=== PATIENT | female | born 1990 | race Caucasian/White ===

== ENCOUNTER 2016-08-16 01:02 | Emergency (ER) | payer MEDICAID ==
[~2016-08-16 01:02] MED LIST: HIGHTAB3 PO; IBUP600 PO; PERI8.6T PO; PREN0.01 PO
--- NOTE | 2016-08-16 02:16 | PD ---
HPI Chief Complaint diarrhea and nausea Date Seen: Aug 16, 2016 Travel History International Travel<30 Days: No Contact w/Intl Traveler<30Days: No Known Affected Area: No History of Present Illness HPI 26 yo @ 30w3d with [facility] 10-22-2016. care with Dr. Patel. Patient presents with c/o diarrhea and reflux/belching and epigastric pain starting last evening. She had a normal dinner, no sick contacts. She denies nausea or vomiting at this time. History Past Medical History Medical History: Denies Significant Hx Obstetric History Obstetric History SAB x 3 x 2, term Past Surgical History Narrative Surgical D&C Family History Family History: Negative Social History Alcohol Use: No Tobacco Use: No Substance Abuse: No Allergies-Medications (Allergen,Severity, Reaction): Coded Allergies: Oxycontin (Verified Allergy, Severe, 12/11/13) Home Meds Active Scripts Sennosides-Docusate Sodium (Carole-Colace 8.6-50 mg)1 Tab Tab2 Tab PO Q12H PRN ( CONSTIPATION) #30 TAB Ref 0 Prov:Nreeyda House MD R3 08/02/15 Ibuprofen (Motrin 600 Mg Tab)600 Mg [id number] Mg PO Q6H PRN ( CRAMPING) # 60 TAB Ref 0 Prov:Nereyda House MD R3 08/02/15 Reported Medications Ferrous Sulfate Tab2 Tab PO BID 07/31/15 Multivit/Min/Fol Ac/Iron/Pren ( Vit ( Plus)) Tab1 Tab PO DAILY 07/31/15 Review of Systems General / Constitutional: No: Fever, Chills Eyes: No: Blurred Vision, Visual changes HENT: No: Headaches, Lightheadedness Cardiovascular: No: Chest Pain or Discomfort, Palpitations Respiratory: No: Cough, Short of Breath Gastrointestinal: Diarrhea, Abdominal Pain (epigastic), Changes in Bowel Habits , No: Nausea, Vomiting, Loss of Appetite Genitourinary: No: Urgency, Frequency, Dysuria, Discharge, Vaginal Bleeding Musculoskeletal: No: Limited ROM, Weakness Skin: No Rash, No Itching, No Lesions Neurologic: No: Syncope, Focal Abnormalities Physical Exam Vital Signs Date Time Temp Pulse Resp B/P Pulse Ox O2 Delivery O2 Flow Rate FiO2 08/16/16 03:38 96 120/68 Narrative GENERAL: Well-nourished, well-developed patient. NAD SKIN: Warm and dry. HEAD: Normocephalic and atraumatic. EYES: No scleral icterus. No injection or drainage. ENT: No nasal drainage noted. Mucous membranes pink. Airway patent. NECK: Supple, trachea midline. No JVD. CARDIOVASCULAR: Regular rate VSS RESPIRATORY: . No accessory muscle use. ABDOMEN/GI: Abdomen soft, non-tender, no rebound, no guarding Gravid TOCO: irregular UC GENITOURINARY: External Genitalia: intact and normal in appearance BUS glands: [-] SVE: Close/50%/high FHT's: Category: I Baseline: 130 Reactive: + accelerations Variability: mod Decels: [-] EXTREMITIES: No cyanosis or edema. BACK: Nontender without obvious deformity. Normal ROM NEUROLOGICAL: Awake and alert. Motor and sensory grossly within normal limits. Normal speech. Data Data Vital Signs Reviewed: Yes Orders Urinalysis - C+S If Indicated (08/16/16 01:55) Vital Signs (Adult) .ON ADMISSION (08/16/16 02:01) ^ Labor Status (08/16/16 02:01) ^ Non Stress Test (08/16/16 02:01) ^ Hydration (08/16/16 02:01) Labs Laboratory Tests Test 08/16/16 01:27 Urine Color LIGHT-YELLOW (YELLW/STRAW) Urine Turbidity CLEAR (CLEAR) Urine pH 7.0 (5.0-8.5) Urine Specific Henrietta 1.007 (1.002-1.035) Urine Protein NEG mg/dL (NEG-TRACE) Urine Glucose (UA) NEG mg/dL (NEG) Urine Ketones NEG mg/dL (NEG) Urine Occult Blood NEG (NEG) Urine Nitrite NEG (NEG) Urine Bilirubin NEG (NEG) Urine Urobilinogen LESS THAN 2.0 MG/DL (LESS THAN 2.0) Urine Leukocyte Esterase NEG (NEG) Urine WBC LESS THAN 1 /hpf (0-5) Urine Squamous Epithelial 1 /hpf (0-5) Cells Microscopic Urinalysis Comment CULT NOT INDICATED MDM Narrative Course / MDM 30 weeks Diarrhea and reflux/belching - improved with BiCitra Tolerating po fluids UA negative Given oral and IV hydration Irregular UC resolved with fluids and Terbulatine x 1. No labor/cervical dilation. Recent intercourse. CAT I FHT Plan D/c home will try TUMS prn increase hydration bland diet reviewed dehydration precautions f/u LASHONDA with Dr. Patel Diagnosis Diagnosis: Primary Impression: Gastrointestinal symptoms during in third trimester, antepartum Additional Impressions: Diarrhea Qualified Code: R19.7 - Diarrhea, unspecified type Epigastric abdominal pain 30 weeks gestation of Disposition: DISCHARGE HOME Condition: Good Delmy Edwards MD Aug 16, 2016 02:16
[2016-08-16 02:29] LABS: BLOOD, URINE NEG (NEG); COMMENT (UR) CULT NOT INDICATED; CULTURE IF INDICATED CULT NOT INDICATED; GLUCOSE,URINE NEG (NEG); KETONE, URINE NEG (NEG); NITRITE,URINE NEG (NEG); SQUAMOUS EPITHELIAL CELL URINE 1 /hpf (0-5); URINE COLOR LIGHT-YELLOW (YELLW/STRAW)
[2016-08-16] MEDS ORDERED: LACTATED RINGER'S 1000 ML INJ 1,000 ML IV SCH (02:34)
[2016-08-16] MEDS ORDERED: CITRIC ACID-SODIUM CITRATE LIQ 30 ML UDC PO ONE (02:45)
[2016-08-16] MEDS ORDERED: ONDANSETRON HCL 4 MG/2 ML VIAL IV ONE (02:45)
[2016-08-16] MEDS ORDERED: TERBUTALINE INJ 1 MG/ML AMP ONE (03:31)
[2016-08-16 03:38] VITALS: BP 120/68; PULSE 96
[2016-08-16] MEDS ORDERED: TERBUTALINE INJ 1 MG/ML AMP SQ ONE (03:45)
== END 2016-08-16 05:00 | disposition home or self-care (01) ==
LOC: HOBED 01:02
DX: O26.93 Pregnancy related conditions, unspecified, third trimester (principal); O62.2 Other uterine inertia; R19.7 Diarrhea, unspecified; R10.13 Epigastric pain; Z3A.30 30 weeks gestation of pregnancy
CPT/HCPCS: 59025; 81001; 96360; 96372; 99284; J3105; J7120

== ENCOUNTER 2016-10-05 20:42 | Emergency (ER) | payer MEDICAID ==
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
== END 2016-10-05 22:15 | disposition home or self-care (01) ==
LOC: HOBED 20:42
DX: O99.89 Other specified diseases and conditions complicating pregnancy, childbirth and the puerperium (principal); R10.9 Unspecified abdominal pain; R42 Dizziness and giddiness; O99.013 Anemia complicating pregnancy, third trimester; O99.283 Endocrine, nutritional and metabolic diseases complicating pregnancy, third trimester; E03.9 Hypothyroidism, unspecified; Z3A.37 37 weeks gestation of pregnancy; Z79.899 Other long term (current) drug therapy
CPT/HCPCS: 59025

== ENCOUNTER 2016-10-28 17:28 | Inpatient (IN) | payer MEDICAID ==
[~2016-10-28] VITALS: Ht 162.6 cm; Wt 86.2 kg
[2016-10-28] VITALS (30 sets, daily range): BP systolic 107–138; BP diastolic 64–80; PULSE 78–103; RESP 14–18; TEMP 98.1
[2016-10-28 18:20] LABS: MEAN CORPUSCULAR HGB CONC 29.8 % (32.0-36.0)
[2016-10-28] MEDS ORDERED: ONDANSETRON HCL 4 MG/2 ML VIAL IV PRN (18:45)
[2016-10-28] MEDS ORDERED: MINERAL OIL 10 ML VIAL TOPICAL PRN (18:45)
[2016-10-28] MEDS ORDERED: LIDOCAINE HCL 1% 50 ML VIAL INFIL PRN (18:45)
[2016-10-28] MEDS ORDERED: CITRIC ACID-SODIUM CITRATE LIQ 30 ML UDC PO SCH (18:45)
[2016-10-28] MEDS: LACTATED RINGER'S 1000 ML INJ 1,000 ML IV SCH ×2 (18:45→23:24)
[2016-10-28] MEDS ORDERED: LIDOCAINE HCL 1% 50 ML VIAL I-DERMAL PRN (18:45)
[2016-10-28] MEDS ORDERED: OXYTOCIN 30 UNITS 500ML PREMIX IV ONE (18:45)
[2016-10-28] MEDS: MISOPROSTOL 25 MCG SUPP VAGINAL ONE ×2 (18:46→19:00)
[2016-10-28 18:57] LABS: AUTOMATED NEUTROPHIL # 8.6 TH/MM3 (1.8-7.7); BASOPHIL % 0.4 % (0.0-2.0); EOSINOPHIL # 0.1 TH/MM3 (0-0.4); EOSINOPHIL % 1.1 % (0.0-4.0); HEMATOCRIT 28.2 % (35.0-46.0); LYMPH % 18.6 % (9.0-44.0); LYMPHOCYTE # 2.3 TH/MM3 (1.0-4.8); MEAN CORPUSCULAR HEMOGLOBIN 18.8 PG (27.0-34.0); MONO % 9.3 % (0.0-8.0); NEUT % 70.6 % (16.0-70.0); PLATELET COUNT 332 TH/MM3 (150-450); RED BLOOD COUNT 4.48 MIL/MM3 (4.00-5.30); RED CELL DISTRIBUTION WIDTH 21.3 % (11.6-17.2); WHITE BLOOD COUNT 12.2 TH/MM3 (4.0-11.0)
[2016-10-28 18:59] LABS: BACTERIA, URINE RARE /hpf; BLOOD, URINE NEG (NEG); COMMENT (UR) CULT NOT INDICATED; CULTURE IF INDICATED CULT NOT INDICATED; GLUCOSE,URINE TRACE mg/dL (NEG); KETONE, URINE TRACE mg/dL (NEG); MUCUS URINE FEW /lpf (OCC); NITRITE,URINE NEG (NEG); PH, URINE 5.5 (5.0-8.5); SQUAMOUS EPITHELIAL CELL URINE 25 /hpf (0-5); URINE COLOR YELLOW (YELLW/STRAW)
[2016-10-28 19:03] LABS: HEMO FLAGS AUTO DIFF
[2016-10-28 20:00] LABS: OVALOCYTES 1+ (NORMAL); PLATELET ESTIMATE SMEAR NORMAL (NORMAL); PLATELET MORPHOLOGY NORMAL (NORMAL); SCAN/DIFF AUTO DIFF CONFIRMED; TEARDROP RBCS 1+ (NORMAL)
[2016-10-28] MEDS ORDERED: ZOLPIDEM TARTRATE 5 MG TAB PO PRN (21:00)
[2016-10-28] MEDS ORDERED: ePHEDrine/NS 25 MG/5 ML SYR ONE (22:54)
[2016-10-28] MEDS ORDERED: fentaNYL 2MCG-BUPIV 0.125% INJ 100 ML ONE (22:54)
[2016-10-28] MEDS ORDERED: ePHEDrine/NS 25 MG/5 ML SYR IV PRN (23:45)
[2016-10-28] MEDS ORDERED: DO NOT ADMINISTER ANTICOAGULANTS PRN (23:45)
[2016-10-28] MEDS ORDERED: fentaNYL 2MCG-BUPIV 0.125% 100 ML EPIDURAL SCH (23:45)
[2016-10-28] MEDS ORDERED: NO SYSTEM NARCOTICS PRN (23:45)
[2016-10-29] VITALS (57 sets, daily range): BP systolic 91–128; BP diastolic 51–81; PULSE 78–129; RESP 15–18; TEMP 97.8–98.1
[2016-10-29] MEDS ORDERED: LIDOCAINE HCL 1% 50 ML VIAL ONE (01:01)
[2016-10-29] MEDS ORDERED: OXYTOCIN 30 UNITS-500ML PREMIX 500 ML IV SCH ×2 (03:45→04:45)
--- NOTE | 2016-10-29 04:31 | PD.OB.DELI ---
Delivery Date: Oct 29, 2016 Anesthesia: Epidural Episiotomy: None Vaginal Delivery: Spontaneous Presentation: Occiput anterior Nuchal Cord: None Delayed cord clamping (45 sec): No Shoulder Dystocia: Suprapubic pressure given, Maulik maneuver done, Other ( 20 seconds, R shoulder anterior) : Female, Single One Minute : 8 Five Minute : 9 Weight: 10#6oz Placenta: Spontaneous delivery, Intact, 3 vessel cord Laceration: Perineal laceration, 1 deg Repair: Vicryl running Estimated blood loss: 100 mL Additional Information shoulder dystocia identified immediately upon delivery of head Maulik maneuver, suprapubic pressure achieved delivery of R anterior shoulder cord clamped & cut immediately on delivery & handed to awaiting nursery/ respiratory staff immediately crying upon delivery, good movement of R upper extremity, Peds will continue to evaluate reviewed events with patient & father of baby, Noa Willingham MD Oct 29, 2016 04:31
[2016-10-29] MEDS ORDERED: ACETAMINOPHEN 325 MG TAB PO PRN (04:45)
[2016-10-29] MEDS ORDERED: WITCH HAZEL 50%/GLYCERIN 12.5% 40 PAD JAR TOPICAL PRN (04:45)
[2016-10-29] MEDS ORDERED: ALUMINUM/MAGNESIUM/SIMETH 30 ML CUP PO PRN (04:45)
[2016-10-29] MEDS ORDERED: ONDANSETRON ODT 4 MG TAB PO PRN (04:45)
[2016-10-29] MEDS ORDERED: DOCUSATE SODIUM 50 MG/SENNA 8.6 MG TAB PO PRN (04:45)
[2016-10-29] MEDS ORDERED: ZOLPIDEM TARTRATE 5 MG TAB PO PRN (04:45)
[2016-10-29] MEDS ORDERED: BENZOCAINE 20% TOPICAL SPRAY 60 ML CAN TOPICAL PRN (04:45)
[2016-10-29] MEDS ORDERED: SODIUM CHLORIDE 0.9% FLUSH 10 ML FLUSH IV FLUSH PRN (04:45)
--- NOTE | 2016-10-29 08:27 | HHI.OB ---
Subjective Post Day: 0 Remarks doing well, with nipple shield Objective Vitals/I&O Vital Signs Date Time Temp Pulse Resp B/P Pulse Ox O2 Delivery O2 Flow Rate FiO2 10/29/16 05:45 88 123/74 10/29/16 05:30 89 115/74 10/29/16 05:15 15 10/29/16 05:15 84 114/66 10/29/16 05:00 98 121/81 10/29/16 04:59 98.0 15 10/29/16 04:45 90 120/76 10/29/16 04:34 16 10/29/16 04:32 95 127/68 10/29/16 04:30 97 127/68 10/29/16 03:46 80 116/70 10/29/16 03:45 94 10/29/16 03:30 109 10/29/16 03:30 129 128/68 10/29/16 03:25 95 10/29/16 03:20 104 10/29/16 03:15 98.1 10/29/16 03:15 18 10/29/16 03:15 97 10/29/16 03:10 110 10/29/16 03:05 89 10/29/16 03:00 100 116/70 10/29/16 03:00 93 10/29/16 02:55 92 10/29/16 02:50 92 10/29/16 02:45 95 10/29/16 02:40 99 10/29/16 02:35 87 10/29/16 02:30 87 10/29/16 02:30 90 119/71 10/29/16 02:25 91 10/29/16 02:20 92 10/29/16 02:15 87 112/65 10/29/16 02:15 89 10/29/16 02:10 87 10/29/16 02:05 91 10/29/16 02:00 85 109/66 10/29/16 02:00 88 10/29/16 01:55 85 10/29/16 01:50 103 10/29/16 01:45 90 112/72 10/29/16 01:45 89 10/29/16 01:40 86 10/29/16 01:35 87 10/29/16 01:30 86 10/29/16 01:30 88 105/71 8/17/17 01:25 82 17/17 01:20 85 1717 01:15 85 17 01:15 88 105/65 17 01:10 81 17 01:08 18 17 01:05 84 10/29/16 01:00 86 1717 01:00 85 17 00:55 87 1717 00:50 85 1717 00:45 83 95/53 1717 00:45 88 17 00:40 83 1717 00:35 86 1717 00:30 98/51 1717 00:30 85 1717 00:30 82 1717 00:25 84 1717 00:20 90 17 00:18 98/52 1717 00:18 81 17 00:15 84 1717 00:15 91/51 1717 00:15 84 1717 00:10 85 17 00:10 85 1717 00:05 90 10/29/16 00:05 90 10/29/16 00:00 102 93/61 1717 00:00 93/61 1717 00:00 87 10/29/16 00:00 87 10/28/16 23:55 83 1617 23:50 82 1617 23:50 82 16/17 23:45 92 1617 23:45 79 107/64 16/17 23:45 78 16/17 23:30 100 16/17 23:30 87 16/17 23:30 95 110/70 16/17 23:25 84 16/17 23:25 84 111/64 16/17 23:25 84 16/17 23:20 91 113/69 16/17 23:20 93 16/17 23:20 93 16/17 23:15 98.1 16/17 23:15 92 108/79 16/17 23:15 94 8/16/17 23:15 94 8/16/17 23:15 18 10/28/16 23:10 86 10/28/16 23:10 84 10/28/16 23:10 85 10/28/16 23:10 124/80 10/28/16 23:05 87 10/28/16 23:05 89 121/75 10/28/16 23:05 89 10/28/16 23:00 97 10/28/16 23:00 95 10/28/16 23:00 98 127/72 10/28/16 22:59 93 138/76 10/28/16 22:50 90 10/28/16 22:45 96 10/28/16 19:20 89 10/28/16 19:20 98.1 96 14 122/75 10/28/16 19:15 98 10/28/16 19:05 99 10/28/16 19:00 95 10/28/16 18:55 91 10/28/16 18:50 95 10/28/16 18:45 89 10/28/16 18:35 95 10/28/16 18:35 95 10/28/16 18:30 96 10/28/16 18:25 103 10/28/16 18:20 102 10/28/16 18:15 95 10/28/16 18:10 99 10/28/16 18:05 98 10/28/16 18:00 96 10/28/16 17:55 97 10/28/16 17:50 97 Objective Remarks GENERAL: Well-nourished, well-developed patient. CARDIOVASCULAR: Regular rate and rhythm without murmurs, gallops, or rubs. RESPIRATORY: Breath sounds equal bilaterally. No accessory muscle use. ABDOMEN/GI: Abdomen soft, non-tender. Fundus: Firm, non-tender at umbilicus. GENITOURINARY: Light to moderate bleeding. EXTREMITIES: No cyanosis or edema, non-tender, without signs of DVT. Medications and IVs Current Medications Medications (Trade) Dose Ordered Sig/Sheree Route Start Time Stop Time Status Last Admin (NS Flush) 2 ml BID IV FLUSH 10/29/16 09:00 Sodium Chloride 2 ml 2 ml UNSCH PRN IV FLUSH 10/29/16 04:45 (Pitocin 30 Units-NS 500 ml Premix) 500 ml @ 100 mls/hr CONTINUOUS IV 10/29/16 04:45 10/29/16 09:44 (Tylenol) 650 mg Q4H PRN PO 10/29/16 04:45 (Motrin) 600 mg Q6H PRN PO 10/29/16 04:45 (Americaine 20% Top Spr) 1 spray Q4H PRN TOPICAL 10/29/16 04:45 (Tucks Pads) 1 applic QID PRN TOPICAL 10/29/16 04:45 (Carole-Colace) 2 tab Q12H PRN PO 10/29/16 04:45 (Ambien) 5 mg HS PRN PO 10/29/16 04:45 (M-M-R Ii Inj) 0.5 ml ONCE ONCE SQ 10/29/16 16:00 10/29/16 16:01 (Boostrix Inj) 0.5 ml ONCE ONCE IM 10/29/16 16:00 10/29/16 16:01 (Mag-Al Plus Susp Liq) 15 ml Q8H PRN PO 10/29/16 04:45 (Zofran Odt) 4 mg Q6H PRN PO 10/29/16 04:45 Assessment/Plan Problem List: (1) (spontaneous vaginal delivery) Assessment and Plan PPD #0 doing well Discharge Planning routine Attending Attestation pt seen by Paola Red MD Oct 29, 2016 08:27
--- NOTE | 2016-10-29 08:41 | MH ---
cc: EVER ALEMAN DATE OF ADMISSION 10/28/2016 HISTORY This is a 25-year-old 6, para 2-0-3-2 intrauterine at 40 weeks and 6 days. care has been with [facility] uncomplicated. She has a history of recurrent losses, three miscarriages. care has been uncomplicated. Group B strep was negative. PAST OB HISTORY Significant for two vaginal deliveries and three miscarriages. PAST MEDICAL HISTORY She suffers from hypothyroidism controlled on Synthroid. PAST SURGICAL HISTORY She had a D&C in 2014. SOCIAL HISTORY She denies toxic habits. MEDICATIONS She takes: 1. Vitamins 2. Iron 3. Synthroid 88 mcg daily ALLERGIES She is allergic to OXYCONTIN. PHYSICAL EXAM VITAL SIGNS: Her vital signs are stable. She is afebrile. HEAD, HEART, CHEST AND LUNG: Exams are within normal limits. ABDOMEN: Soft and nontender, gravid. PELVIC: Her cervix is 2-3 cm dilated, 50% effaced, -1 station, membranes intact, vertex presentation. JELANI on 10/23/2016 was 13 cm. Biophysical profile was 8/8 in her NST was reactive. ASSESSMENT/PLAN She is a 25-year-old 6, para 2-0-3-2 intrauterine at 40 weeks, 6 days being induced for post date , history of recurrent losses risks. The risks, benefits, and alternatives have been explained to the patient. Her questions have been answered. She will be admitted for Cytotec suppository followed by Pitocin augmentation in the morning. MD DONYA Ordoñez/PATRICIO /11:11 AM /8:37 AM
[2016-10-29] MEDS ORDERED: SODIUM CHLORIDE 0.9% FLUSH 10 ML FLUSH IV FLUSH SCH (09:00)
[2016-10-29] MEDS: IBUPROFEN 600 MG TAB PO PRN ×2 (12:24→20:06)
[2016-10-29] MEDS ORDERED: DIPHTH/TETANUS/ACEL PERTUSSIS (BOOSTER) 0.5 ML VIAL/PFS IM ONE (16:00)
[2016-10-29] MEDS ORDERED: MEASLES, MUMPS, RUBELLA VACCINE 0.5 ML VIAL SQ ONE (16:00)
[2016-10-30 08:05] VITALS: BP 118/73; PULSE 73; RESP 16; TEMP 98.1
--- NOTE | 2016-10-30 08:51 | HHI.OB ---
Subjective Post Day: 1 Remarks Doing well. baby has some weakness of shoulder and hip dislocation. has hip brace in place. Objective Vitals/I&O Vital Signs Date Time Temp Pulse Resp B/P Pulse Ox O2 Delivery O2 Flow Rate FiO2 10/29/16 20:00 97.8 10/29/16 20:00 84 18 117/72 Objective Remarks GENERAL: Well-nourished, well-developed patient. CARDIOVASCULAR: Regular rate and rhythm without murmurs, gallops, or rubs. RESPIRATORY: Breath sounds equal bilaterally. No accessory muscle use. ABDOMEN/GI: Abdomen soft, non-tender. Fundus: Firm, non-tender at umbilicus. GENITOURINARY: Light to moderate bleeding. EXTREMITIES: No cyanosis or edema, non-tender, without signs of DVT. Medications and IVs Current Medications Medications (Trade) Dose Ordered Sig/Sheree Route Start Time Stop Time Status Last Admin (NS Flush) 2 ml BID IV FLUSH 10/29/16 09:00 (NS Flush) 2 ml UNSCH PRN IV FLUSH 10/29/16 04:45 (Tylenol) 650 mg Q4H PRN PO 10/29/16 04:45 10/29/16 20:05 (Motrin) 600 mg Q6H PRN PO 10/29/16 04:45 10/29/16 20:06 (Americaine 20% Top Spr) 1 spray Q4H PRN TOPICAL 10/29/16 04:45 10/29/16 09:10 (Tucks Pads) 1 applic QID PRN TOPICAL 10/29/16 04:45 10/29/16 09:09 (Carole-Colace) 2 tab Q12H PRN PO 10/29/16 04:45 10/29/16 20:05 (Ambien) 5 mg HS PRN PO 10/29/16 04:45 (Mag-Al Plus Susp Liq) 15 ml Q8H PRN PO 10/29/16 04:45 (Zofran Odt) 4 mg Q6H PRN PO 10/29/16 04:45 Assessment/Plan Problem List: (1) (spontaneous vaginal delivery) Assessment and Plan PPD #1 w Shoulder dystocia doing well Discharge Planning routine, tomorrow Selam Patel MD Oct 30, 2016 08:51
[2016-10-30] MEDS: IBUPROFEN 600 MG TAB PO PRN ×2 (10:58→16:54)
--- NOTE | 2016-10-30 13:52 | HHI.DCPOC ---
Discharge Care Plan Diagnosis: (1) (spontaneous vaginal delivery) (2) Shoulder (girdle) dystocia during labor and delivery, delivered Your Health Problems Are: Vaginal delivery Report Symptoms to Your Doctor -Temperature above 100.5 degrees -Redness, of incision or excessive or foul smelling drainage -Unusual pain or calf pain -Increased vaginal bleeding -Painful or difficulty urinating -Feelings of extreme sadness or anxiety after 2 weeks Goals to Promote Your Health * To prevent worsening of your condition and complications * To maintain your health at the optimal level Directions to Meet Your Goals Take your medications as prescribed Follow your dietary instruction Follow activity as directed Ensure plenty of rest for recovery Drink fluids for hydration Keep your appointments as scheduled Take your immunizations and boosters as scheduled If your symptoms worsen call your PCP, if no PCP go to Urgent Care Center or Emergency Room Smoking is Dangerous to Your Health. Avoid second hand smoke Call the 24-hour crisis hotline for domestic abuse at Selam Patel MD Oct 30, 2016 13:52
== END 2016-10-30 17:33 | disposition home or self-care (01) | DRG 775 ==
LOC: H2EB 17:28 → H1EA 10-29 06:15
PROVIDERS: ADMIT Obstetrics & Gynecology; ATTEND Obstetrics & Gynecology
PROC: 3E0P7GC Introduction of Other Therapeutic Substance into Female Reproductive, Via Natural or Artificial Opening (ICD-10-PCS; 2016-10-28)
PROC: 10E0XZZ Delivery of Products of Conception, External Approach (ICD-10-PCS; principal; 2016-10-29)
PROC: 0HQ9XZZ Repair Perineum Skin, External Approach (ICD-10-PCS; 2016-10-29)
DX: O48.0 Post-term pregnancy (principal); E03.9 Hypothyroidism, unspecified; O99.284 Endocrine, nutritional and metabolic diseases complicating childbirth; Z3A.40 40 weeks gestation of pregnancy; Z37.0 Single live birth; O70.0 First degree perineal laceration during delivery; O66.0 Obstructed labor due to shoulder dystocia
CPT/HCPCS: 59025; 81001; 85025; 90715; J2590; J7120

== ENCOUNTER 2017-03-03 19:10 | Emergency (ER) | payer MEDICAID ==
[2017-03-03 19:17] VITALS: BP 116/73; PULSE 78; RESP 20; TEMP 98; O2SAT 98
[2017-03-03] MEDS ORDERED: PREN29TA PO (19:27)
--- NOTE | 2017-03-03 19:41 | PD ---
HPI Chief Complaint: Facial Pain or Swelling Time Seen by Provider: 19:38 Travel History International Travel<30 days: No Contact w/Intl Traveler<30days: No Traveled to known affect area: No History of Present Illness HPI This patient complains of pain in her right TMJ. sHe has it on and off but hasn 't bothered her much lately until today. No injury or fever. No dental pain. Symptoms worse when she moves her TMJ. PFSH Past Medical History Anemia: Yes Tetanus Vaccination: < 5 Years Influenza Vaccination: No ?: Not LMP: AUGUST Miscarriage: 1 Past Surgical History Surgical History: No Previous Surgery Social History Alcohol Use: No Tobacco Use: No Substance Use: No Allergies-Medications (Allergen,Severity, Reaction): Coded Allergies: oxycodone (Unverified Allergy, Severe, 03/03/17) Reported Meds & Prescriptions Reported Meds & Active Scripts Active Reported Plus Iron 29-1 mg ( Vit-Iron Carbonyl) 29 Mg Iron-1 Mg Tab 1 Tab PO DAILY Review of Systems General / Constitutional: No: Fever HENT: No: Headaches Cardiovascular: No: Chest Pain or Discomfort Physical Exam Narrative NECK: Symmetrical appearance, midline trachea. No mass or crepitus. Thyroid without enlargement, tenderness, or mass. SKIN: Focused skin assessment reveals no rash or ulcers. Skin is warm and dry. Palpation shows no induration or nodules. Oral cavity clear Right TMJ is tender to palpation but not red or fluctuant or inflamed visibly Data Data Last Documented VS Vital Signs Date Time Temp Pulse Resp B/P (MAP) Pulse Ox O2 Delivery O2 Flow Rate FiO2 03/03/17 19:17 98.0 78 20 116/73 (87) 98 MDM Medical Decision Making Medical Screen Exam Complete: Yes Emergency Medical Condition: Yes Medical Record Reviewed: Yes Differential Diagnosis TMJ syndrome, pharyngitis, arthritis Narrative Course I have reviewed the patient's electronic medical record. Presentation seems most consistent with a TMJ syndrome. We discussed supportive care including ice and rest and soft diet and anti-inflammatories The patient was advised to follow up with their physician and return if they worsen. Diagnosis Primary Impression: TMJ syndrome Additional Instructions: The patient was advised to follow up with their physician and return if they worsen. Rest and ice the right TMJ Have soft diet Use anti-inflammatories as needed Med/Other Pt SpecificInfo: Other Disposition: 01 DISCHARGE HOME Condition: Stable Dio Multani MD Mar 03, 2017 19:41
== END 2017-03-03 19:51 | disposition home or self-care (01) ==
LOC: PHEFT 19:10
DX: M26.609 Unspecified temporomandibular joint disorder, unspecified side (principal)
CPT/HCPCS: 99282